=== PATIENT | female | born 1940 | race Caucasian/White ===

== ENCOUNTER 2018-12-19 11:22 | Observation (INO) | payer OTHER ==
--- OUTSIDE RECORDS SUMMARY | 2018-12-19 12:30 | XMS REPORT ---
:1940 [facility] Address [address] [place] [address] Care Team Providers Name Role Phone Unavailable Unavailable Unavailable Payers Payer Name Policy Type Policy Number Effective Date Expiration Date Problems This patient has no known problems. Allergies, Adverse Reactions, Alerts Allergy Name Allergy Status Severity Reaction(s) Onset Inactive Treating Comments Type Date Date Clinician No Known DA Active U 2018-07 Allergies 23 00:00:0 0 DEMEROL DA Active U 2008-05 00:00:0 0 No Known DA Active U 2008-05 Contrast - Allergies 00:00:0 0 No Known DA Active U 2008-05 Food - Allergies 00:00:0 0 No Known DA Active U 2008-05 Other - Allergies 00:00:0 0 meperidine DA Active U 2008-05 00:00:0 0 Medications This patient has no known medications. Results Test Description Test Time Test Comments Text Results Atomic Results Result Comments - XR FLUORO NDL 2018-08-02 10:54:00 Patient Name: SHELDON AJ Unit No: [id number] EXAMS: CPT CODE: [id number] XR FLUORO NDL [id number] Fluoroscopically guided right hip aspiration FINDINGS: After informed consent was obtained a 22-gauge needle is inserted into the right hip under fluoroscopic guidance using sterile technique. 5 mL of clear yellow fluid was aspirated. This is sent to the lab for analysis. The patient tolerated the procedure well. IMPRESSION: Fluoroscopically guided right hip aspiration. at 1054 Reported and signed by: Willi Jaime M.D. CC: John Hdz MD Technologist: JOANNA JEFFREY, RT(R) Transcribed D/ (1926) [email or web address] [facility] NAME: SHELDON AJ [address] [facility] PHYS: John Campbell MD : 1940 AGE: 78 SEX: F [place] [address] LOC: Y.RAD PHONE #: [phone] EXAM DATE: 08/01/2018 STATUS: DEP CLI FAX #: [phone] RAD #: [id number] D/C DT PAGE 1 Signed Report Patient Name: SHELDON AJ Unit No: [id number] EXAMS: CPT CODE: [id number] XR FLUORO NDL [id number] <Continued> Orig Print D/T: S: 08/02/2018 ([id number]) [facility] NAME: SHELDON AJ [address] [facility] PHYS: John Campbell MD : 1940 AGE: 78 SEX: F [place] [address] LOC: Y.RAD PHONE #: [phone] EXAM DATE: 08/01/2018 STATUS: DEP CLI FAX #: [phone] RAD #: [id number] D/C DT PAGE 2 Signed Report SYNOVIAL FLD CELL CT/DIFF 2018-08-01 14:50:00 Test Item Value Reference Range Comments SYNOVIAL FLD COLOR (test code=COLSY) LIGHT YELLOW LT. YELLOW SYNOVIAL FLD APPEARANCE (test code=APPSY) OPAQUE CLEAR SYNOVIAL FLD VOLUME (test code=VOLSY) 1.0 mL SYNOVIAL FLD WBC (test code=WBCSY) /MM3 0-200 SYNOVIAL FLD RBC (test code=RBCSY) /mm3 0-2 SYNOVIAL FLD POLY (test code=POLYSY) 4 % 0-25 SYNOVIAL FLD LYMPHOCYTE (test code=LYMPHSY) 81 % 0-78 SYNOVIAL FLD MONOCYTE (test code=MONOSY) 15 % 0-71 SPECIMEN COMMENT: ASPIRATION RT HIP DONE BY DR. JAIMESYNOVIAL FLD CELL CT/ [id number] 14:50:00 Test Item Value Reference Range Comments SYNOVIAL FLD COLOR (test LIGHT YELLOW LT. YELLOW code=COLSY) SYNOVIAL FLD APPEARANCE [place]QUE CLEAR (test code=APPSY) SYNOVIAL FLD VOLUME 1.0 mL (test code=VOLSY) SYNOVIAL FLD WBC (test 9432.000 /MM3 0-200 code=WBCSY) SYNOVIAL FLD RBC (test 9000.000 /mm3 0-2 NOTE: An automated method is code=RBCSY) now being used to determinesynovial fluid WBC and RBC counts. The differential willstill be performed manually. SYNOVIAL FLD POLY (test 4 % 0-25 code=POLYSY) SYNOVIAL FLD LYMPHOCYTE 81 % 0-78 (test code=LYMPHSY) SYNOVIAL FLD MONOCYTE 15 % 0-71 (test code=MONOSY) SPECIMEN COMMENT: ASPIRATION RT HIP DONE BY DR. JAIME
[2018-12-19 12:47] VITALS: BMI 23.8
[2018-12-19 13:52] LABS: Absolute Lymphocytes (CBC) 1.2 K/uL (0.7-4.9); Absolute Monocytes 0.4 K/uL (0.1-1.3); Absolute Neutrophil 2.7 K/uL (1.8-8.0); Basophils % 1.2 % (0-1.3); Eosinophils % 1.1 % (0-4.4); Hematocrit 38.8 % (36.0-45.0); Lymphocytes % 27.6 % (15.3-44.8); MPV 7.9 fL (7.6-11.3); Monocytes % 8.1 % (3.3-12.3); RBC Red Blood Cell Count 4.21 M/uL (3.86-4.86)
[2018-12-19] MEDS ORDERED: ACETAMINOPHEN 325 MG TABLET PO PRN (14:00)
[2018-12-19] MEDS ORDERED: ONDANSETRON 4 MG (ODT) TAB PO PRN (14:00)
[2018-12-19] MEDS ORDERED: LOPERAMIDE HCL 2 MG CAPSULE PO PRN (14:00)
[2018-12-19] MEDS ORDERED: DIPHENHYDRAMINE 25 MG TAB/CAP PO PRN (14:00)
[2018-12-19] MEDS ORDERED: ONDANSETRON 4 MG/2 ML VIAL IV PRN (14:00)
[2018-12-19] MEDS ORDERED: POLYETHYL GLY 3350 17 GM/DOSE PO PRN (14:00)
[2018-12-19] MEDS ORDERED: NACHLORIDE 0.45% 1,000 ML IV SCH (14:00)
[2018-12-19 14:40] LABS: Protime INR 1.02
[2018-12-19 15:13] LABS: Albumin 3.6 g/dL (3.4-5.0); Bilirubin Direct 0.1 mg/dL (0-0.2); Bilirubin Total 0.4 mg/dL (0.2-1.0); Magnesium 2.5 mg/dL (1.8-2.4); Phosphorus 3.6 mg/dL (2.5-4.9); Protein, Total 7.5 g/dL (6.4-8.2); Thyroid Stimulating Hormone 1.55 uIU/mL (0.360-3.740)
--- NOTE | 2018-12-19 16:05 | RAD REPORT ---
EXAM DESCRIPTION: RAD - Chest Pa And Lat (2 Views) - 12/19/2018 3:55 pm CLINICAL HISTORY: Pneumonia COMPARISON: May 2008 TECHNIQUE: PA and lateral views of the chest were obtained. FINDINGS: The lungs are clear of failure, infiltrate or mass. Interstitial fibrotic pattern is pres ent progressive from 2007. Heart size is normal and central vasculature is within normal limits. No pleural effusion or pneumothorax seen. No acute bony finding noted. No aortic abnormality. IMPRESSION: No acute cardiopulmonary process. Underlying fibrotic lung pattern progressive from 2007.
[2018-12-19 16:11] LABS: Urine Appearance CLEAR; Urine Bilirubin NEGATIVE (NEG); Urine Blood NEGATIVE (NEG); Urine Color YELLOW; Urine Glucose NEGATIVE (NEG); Urine Protein NEGATIVE (NEG); Urine Specific Gravity <=1.005 (1.005-1.030); Urine Urobilinogen 0.2 mg/dL (0.2-1.0)
[2018-12-19 16:17] LABS: Urine Microscopic Reflex NO UMIC
--- NOTE | 2018-12-19 16:28 | RAD REPORT ---
EXAM DESCRIPTION: CT - Abdomen Pelvis W Contrast - 12/19/2018 3:39 pm CLINICAL HISTORY: Right-sided abdominal pain COMPARISON: None. TECHNIQUE: Biphasic, helical CT imaging of the abdomen and pelvis was performed following 100 ml non -ionic IV contrast. Oral contrast was given. All CT scans are performed using dose optimization technique as appropriate and may include automated exposure control or mA/KV adjustment according to patient size. FINDINGS: No suspicious findings in the lung bases. The liver, spleen, and pancreas show no suspicious findings. Gallbladder and biliary tree are also wi thout suspicious finding. Symmetric renal function is seen with no hydronephrosis or suspicious renal mass. No pyelonephritis o r acute parenchymal process. No bladder abnormalities. No adrenal abnormalities. No gastric dilatation or gastric wall thickening. No dilated large or small bowel loops. Moderate sto ol volume throughout most of the colon. Patient has prominent diverticulosis in the left-sided colon without diverticulitis evident. No free air, free fluid or inflammatory stranding. No hernia, mass or bulky lymphadenopathy. No acute bone finding. Patient has bilateral hip implants which cause substantial spray artifact limi ting pelvic floor assessment. Disc and bony degenerative changes are present. IMPRESSION: Prominent left-sided diverticulosis without diverticulitis. No acute GI process identifi able. No abnormality seen to explain right-sided pain pattern. Prominent lumbar degenerative change without acute or destructive bone process. Bilateral hip implants are in place creating substantial spray artifact. This limits pelvic floor ass essment.
[2018-12-19] MEDS ORDERED: CEFOXITIN/SWI 1gm 1 GM/10 ML SYR IV SCH (17:00)
[2018-12-19] MEDS: DEXAMETHASONE 4 MG/ML VIAL IV SCH (18:17)
--- NOTE | 2018-12-19 21:15 | EKG ---
Test Date: 2018-12-19 Test Time: 17:21:09 Wire Strander: SUNNI MEASUREMENT RESULTS: Intervals: Rate: 57 IN: 138 QRSD: 84 QT: 454 QTc: 441 Anza: P: 43 IN: 138 QRS: 7 T: 33 INTERPRETIVE STATEMENTS: Sinus bradycardia Nonspecific T wave abnormality Abnormal ECG Compared to ECG 03/11/2010 07:48:33 T-wave abnormality now present Electronically Signed On 12-19-18 21:14:55 CDT by Lauro Barros
[2018-12-20] MEDS: DEXAMETHASONE 4 MG/ML VIAL IV SCH ×3 (00:33→12:21)
[2018-12-20] MEDS ORDERED: LEVOTHYROXINE SOD 0.075 MG TAB PO SCH (06:00)
[2018-12-20] MEDS ORDERED: PANTOPRAZOLE 40 MG INJ IV SCH (09:00)
[2018-12-20] MEDS ORDERED: SODIUM CHLORIDE 0.9% 10ML INJ IV SCH (09:00)
[2018-12-20 10:43] VITALS: O2SAT 97
--- NOTE | 2018-12-20 10:47 | RAD REPORT ---
EXAM DESCRIPTION: MRI - Lumbar Spine Wo Alfred - 12/20/2018 10:37 am CLINICAL HISTORY: Spine fracture, cord compression, lower extremity weakness, back pain 5 COMPARISON: None. TECHNIQUE: Sagittal T1-weighted, T2-weighted and T2-STIR weighted sequences were obtained. Axial T1 -weighted and heavily T2-weighted sequenceswere obtained through the lumbar disc levels. FINDINGS: Lumbar bodies are normal in height and normal in AP alignment. Degenerative left convex sc oliotic curvature is present in the mid lumbar spine. No lateral subluxation abnormalities. Fatty marrow degenerative changes are scattered throughout the lumbar spine. No marrow edema or marro w replacing process. No suspicious marrow signal. No paraspinal masses. Conus is normal with no clumping or thickening of the cauda equina. T12-L1 level: No significant findings. L1-2 level: Disc is desiccated with a slight loss in disc height. Mild bulging of disc material exten ds across the central canal and into the left exit foramen. No canal or foramen stenosis. L2-3 level: Substantial loss in disc height noted with desiccation. Degenerative changes involve the endplates and there are circumferential endplate spur is present. No central spinal stenosis present. Disc bulge and endplate spurring changes cause mild foraminal encroachment. There is ample perineura l fat surrounding the exiting nerve roots. Facet degenerative changes mild. L3-4 level: Disc is desiccated with only minimal loss in disc height. Mild bilateral foraminal encroa chment is present with ample perineural fat still present. More prominent disc bulge changes are pres ent flattening the anterior thecal sac but not resulting in spinal stenosis. Midline thecal sac diame ter is 13 mm. Facet degenerative changes are present. L4-5 level: Disc is desiccated with minimal loss in height. Degenerative change involves the inferior endplate L4. Spurring and disc bulge changes are present in the right foramen but no significant geri nosis. A mild left foraminal stenosis is present from disc bulge and endplate spurring. Midline disc bulge minimally flattens the thecal sac. No spinal stenosis present. Thecal sac midline diameter is 1 4 mm. Facet joint degenerative changes are present. L5-S1 level: Disc is thinned and desiccated with endplate degenerative change present. No herniation. Mild to moderate foraminal encroachment changes are present with only a small amount of perineural f at. This is due to disc bulge and endplate spurring. No central spinal stenosis. IMPRESSION: No compression fractures are present and there is no spinal stenosis. Degenerative changes are present throughout all lumbar disc levels most pronounced at L2-3. Varying degrees of foraminal encroachment are present though none are deemed critical. Findings are m ore pronounced at L5-S1 where the encroachment of the foramen is rated as mild to moderate. Fatty marrow degenerative change throughout the lumbar spine. No suspicious marrow pattern.
--- NOTE | 2018-12-20 13:01 | P.DS ---
Admission Date: 12/19/18 Discharge Date: 12/20/18 Disposition: ROUTINE DISCHARGE Discharge Condition: [facility]IR Hospital Course: ESTER IS DOING GREAT. SHE HAD NO PAIN YESTERDAY AFTER STEROID INJECTION. SHE IS STABLE FOR DC. 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 Vital Signs/Physical Exam: Temp Pulse Resp BP Pulse Ox 97.4 F 66 16 107/53 L 97 12/20/18 08:00 12/20/18 08:00 12/20/18 08:00 12/20/18 08:00 12/20/18 08:00 Laboratory Data at Discharge: WBC 4.3 K/uL (4.3-10.9) 12/19/18 13:39 Hgb 13.3 g/dL (12.0-15.0) 12/19/18 13:39 Hct 38.8 % (36.0-45.0) 12/19/18 13:39 Plt Count 478 K/uL (152-406) H 12/19/18 13:39 PT 12.0 SECONDS (9.5-12.5) 12/19/18 14:10 INR 1.02 12/19/18 14:10 APTT 33.7 SECONDS (24.3-36.9) 12/19/18 14:10 Sodium 142 mmol/L (136-145) 12/19/18 14:10 Potassium 4.0 mmol/L (3.5-5.1) 12/19/18 14:10 BUN 14 mg/dL (7-18) 12/19/18 14:10 Creatinine 0.75 mg/dL (0.55-1.3) 12/19/18 14:10 Glucose 96 mg/dL (74-106) 12/19/18 14:10 Phosphorus 3.6 mg/dL (2.5-4.9) 12/19/18 14:10 Magnesium 2.5 mg/dL (1.8-2.4) H 12/19/18 14:10 Total Bilirubin 0.4 mg/dL (0.2-1.0) 12/19/18 14:10 AST 22 U/L (15-37) 12/19/18 14:10 ALT 24 U/L (12-78) 12/19/18 14:10 Alkaline Phosphatase 144 U/L (45-117) H 12/19/18 14:10 Home Medications: Levothyroxine Sodium 75 mcg PO [id number] 12/19/18 Patient Discharge Instructions: Ester, Your MRI shows pinch nerves from arthritis . I sent Gabapentin for pinch nerve to pharmacy. I will see you in office in one week.
[2018-12-20 13:41] VITALS: BP 131/60; TEMP 97
[2018-12-22 20:45] LABS: Vitamin D 1,25-Dihydroxy Total 47 pg/mL (18-72); Vitamin D,1,25-OH2, D2 <8 pg/mL
== END 2018-12-20 14:20 | disposition home or self-care (01) ==
LOC: 2ND 12:03
PROVIDERS: ADMIT Internal Medicine; ATTEND Internal Medicine
DX: M47.816 Spondylosis without myelopathy or radiculopathy, lumbar region (principal); G58.8 Other specified mononeuropathies; E53.8 Deficiency of other specified B group vitamins; E03.9 Hypothyroidism, unspecified; Z79.899 Other long term (current) drug therapy; R00.1 Bradycardia, unspecified; R94.31 Abnormal electrocardiogram [ECG] [EKG]; K57.30 Diverticulosis of large intestine without perforation or abscess without bleeding
CPT/HCPCS: 36415; 71046; 72148; 74177; 80053; 81003; 82248; 82607; 82652; 83735; 84100; 84443; 85025; 85610; 85730; 87040; 87205; 93005; C9113; G0378; Q9967